=== PATIENT | male | born 1955 | race African-American/Black ===

== ENCOUNTER 2017-07-31 16:20 | Emergency (ER) | payer OTHER ==
[2017-07-31 16:29] VITALS: BP 164/86; PULSE 88; TEMP 98.3; BMI 33.7
[2017-07-31] MEDS ORDERED: KETOROLAC TROMETHAMINE 60 MG/2 ML VIAL IM ONE (18:17)
--- NOTE | 2017-07-31 18:17 | PDOC ---
History of Present Illness - General Chief Complaint: Pain Stated Complaint: PAIN Time Seen by Provider: 07/31/17 17:57 History Source: Patient Exam Limitations: No Limitations - History of Present Illness Initial Comments: 07/31/17 18:14 CHIEF COMPLAINT: [Left lateral Lower back pain] HISTORY OF PRESENT ILLNESS:[ 61]-year-old [male],[ history of non-insulin- dependent diabetes, hypertension, stent in 07, history of back injury presents with lower back pain after lifting a box while he is moving. Pain started suddenly to left lower back after lifting a box, he felt an immediate sharp pain dropped a box now with persistent pain . Nonradiating pain, no neurosensory deficits, no bowel or bladder difficulty incontinence or urinary retention, no saddle anesthesia, no footdrop. No history of IVDU or history of cancer. ] REVIEW OF SYSTEMS: GENERAL: Afebrile, denies any weakness RESPIRATORY: No cough, wheezing, or hemoptysis. CARDIAC: No chest pain or shortness of breath MUSCULOSKELETAL: Pain to generalized lower back. No point tenderness. Pain worse on left then right SKIN : No erythema, no bruising, no deformity. GI/: Denies any abdominal pain, no urinary difficulty, incontinence or urinary retention. RECTAL: Denies any difficulty this A.m. NEUROLOGICAL: Denies any numbness or tingling. No neurosensory deficits. PHYSICAL EXAM: GENERAL: The patient is awake, alert, and fully oriented, in no acute distress. RESPIRATORY: Lungs clear bilaterally, no rhonchi wheezes or crackles CARDIAC: S1-S2 audible, no murmur rub or gallop MUSCULOSKELETAL: Pain to generalized lower back, nonradiating, no tingling or sensory deficit. Less than 2 second cap refill, +4 popliteal and pedal pulses. GI/: Abdomen soft, nontender, nondistended. No rebound tenderness. No masses palpable. MUSCULOSKELETAL: No spinal point tenderness. Normal reflexive and no deficits to sensation or strength. RECTAL: [Deferred patient with no neurological findings] SKIN: Warm, Dry, normal turgor, no erythema, no edema no bruising. Past History - Past Medical History Allergies/Adverse Reactions: Allergies Allergy/AdvReac Type Severity Reaction Status Date / Time Penicillins Allergy Verified 07/31/17 16:25 Home Medications: Ambulatory Orders Aspirin [ASA -] 81 mg PO DAILY 07/31/17 Atorvastatin Ca [Lipitor] 20 mg PO HS 07/31/17 Linagliptin [Tradjenta] 5 mg PO ASDIR 07/31/17 Losartan Potassium [Cozaar] 25 mg PO ASDIR 07/31/17 Methylprednisolone [Medrol Dose Jax] 4 mg PO ASDIR #21 tablet 07/31/17 Metoprolol Succinate [Toprol Xl] 50 mg PO ASDIR 07/31/17 Nifedipine ER [Procardia XL -] 90 mg PO DAILY 07/31/17 COPD: No HTN: Yes Hypercholesterolemia: Yes - Suicide/Smoking/Psychosocial Hx Smoking History: Never smoked Have you smoked in the past 12 months: No Information on smoking cessation initiated: Yes Hx Alcohol Use: No Drug/Substance Use Hx: No Substance Use Type: None *Physical Exam - Vital Signs Last Vital Signs Temp Pulse Resp BP Pulse Ox 98.3 F 88 18 164/86 100 07/31/17 16:25 07/31/17 16:25 07/31/17 16:25 07/31/17 16:25 07/31/17 16:25 Medical Decision Making - Medical Decision Making 07/31/17 18:16 A/P: Patient with left lateral lower back pain radiating down left leg and buttock, consistent with sciatica will give Toradol while in emergency department and DC on Medrol Dosepak. Follow-up with orthopedics. We'll perform x -ray 07/31/17 18:51 X-ray demonstrated lumbar spondylosis, asymmetric lucency in the region of the right L5 pedicle and lamina. Patient reports history of kidney removal were no surgical history 2 back. I will discharge patient home on Medrol Dosepak and Tylenol as needed, follow-up with Dr. Brito. Patient reports pain was resolved mildly after Toradol. *DC/Admit/Observation/Transfer Diagnosis at time of Disposition: Back pain Qualifiers: Back pain location: low back pain Chronicity: acute Back pain laterality: left Sciatica presence: with sciatica Sciatica laterality: sciatica of left side Qualified Code(s): M54.42 - Lumbago with sciatica, left side - Discharge Dispostion Disposition: HOME Condition at time of disposition: Stable Admit: No - Prescriptions Prescriptions: Methylprednisolone [Medrol Dose Jax] 4 mg PO ASDIR #21 tablet - Referrals Referrals: Tong Brito MD [Primary Care Provider] - - Patient Instructions Printed Discharge Instructions: Back Pain (Alternative Therapy) Additional Instructions: 1. Please return to the emergency department with any numbness, tingling, weakness, numbness or tingling to groin or legs, or loss of bowel or bladder function. 2. Use steroids as ordered 3. Please is to followup in the office of Dr. Brito for evaluation within a week if no improvement. 4. Ice to lower back 5. Refrain from lifting anything above 10 pounds, until pain resolved. - Post Discharge Activity Forms/Work/School Notes: Back to Work
[2017-07-31] MEDS ORDERED: KETOROLAC TROMETHAMINE 60 MG/2 ML VIAL ONE (18:20)
== END 2017-07-31 19:02 | disposition home or self-care (01) ==
LOC: JERFT 16:20
PROC: 3E0233Z Introduction of Anti-inflammatory into Muscle, Percutaneous Approach (ICD-10-PCS; principal; 2017-07-31)
DX: M54.42 Lumbago with sciatica, left side (principal); X50.0XXA Overexertion from strenuous movement or load, initial encounter; Y93.E6 Activity, residential relocation; Y92.038 Other place in apartment as the place of occurrence of the external cause; I25.10 Atherosclerotic heart disease of native coronary artery without angina pectoris; I10 Essential (primary) hypertension; Z95.5 Presence of coronary angioplasty implant and graft; E11.9 Type 2 diabetes mellitus without complications; Z79.84 Long term (current) use of oral hypoglycemic drugs
CPT/HCPCS: 72100-TC-FY; 99281-25

== ENCOUNTER 2023-07-16 06:27 | Emergency (ER) | payer OTHER ==
[2023-07-16 06:37] VITALS: RESP 20; BMI 31.4
[2023-07-16] MEDS ORDERED: LIDOCAINE 4% PATCH TP ONE ×2 (08:33→08:44)
[2023-07-16] MEDS ORDERED: KETOROLAC TROMETHAMINE 30 MG/1 ML VIAL IM ONE (08:33)
[2023-07-16] MEDS ORDERED: KETOROLAC TROMETHAMINE 30 MG/1 ML VIAL ONE (08:44)
[2023-07-16 14:19] VITALS: BP 129/90; PULSE 95; TEMP 98.4
== END 2023-07-16 09:50 | disposition home or self-care (01) ==
LOC: JER 06:27
PROC: 3E0233Z Introduction of Anti-inflammatory into Muscle, Percutaneous Approach (ICD-10-PCS; principal; 2023-07-16)
DX: M79.652 Pain in left thigh (principal)
CPT/HCPCS: 99284-25